=== PATIENT | male | born 1965 ===

== ENCOUNTER 2022-04-14 07:04 | Day surgery (SDC) | payer OTHER ==
[~2022-04-14] VITALS: Ht 172.7 cm; Wt 70.3 kg
[~2022-04-14 07:04] MED LIST: ASPIRIN81 MG PO; LIPITOR20 M1 PO
[2022-04-14] MEDS ORDERED: TORADOL PO (09:49)
[2022-04-14 10:44] VITALS: BP 122/80
== END 2022-04-14 10:50 | DRG 355 ==
LOC: ORM 07:04
PROVIDERS: ATTEND Surgery
PROC: 0WUF4JZ Supplement Abdominal Wall with Synthetic Substitute, Percutaneous Endoscopic Approach (ICD-10-PCS; principal; 2022-04-14)
DX: K43.2 Incisional hernia without obstruction or gangrene (principal)
CPT/HCPCS: C9290; J0131